=== PATIENT | male | born 1970 | race Caucasian/White ===

== ENCOUNTER 2019-03-04 01:07 | Emergency (ER) | payer OTHER ==
[~2019-03-04] VITALS: Ht 172.7 cm; Wt 120.0 kg
[2019-03-04 01:08] VITALS: Ht 172.7 cm; Wt 120.0 kg
--- NOTE | 2019-03-04 01:52 | ERD ---
ER Documentation Chief Complaint Chief Complaint HPI This is a 48-year-old male who presents for evaluation chest pain. Patient was brought in by ambulance, episode happened prior to arrival, however on arrival he became much more somnolent. His son was at the bedside who stated the patient had no history of drug use, no major medical problems. Patient has a history of sleep apnea, and he recently went through a sleep study. He states that his chest pain has been exertional, and is intermittent. ROS All systems reviewed and are negative except as per history of present illness. Allergies Allergies: Coded Allergies: No Known Allergy (Unverified , 03/04/19) Physical Exam Vitals Vital Signs Date Temp Pulse Resp B/P (MAP) Pulse Ox O2 O2 Flow FiO2 Time Delivery Rate 03/04/19 4 01:27 03/04/19 98.0 98 18 128/76 100 01:08 (93) Physical Exam Const: Asleep, somnolent, protecting airway Head: Atraumatic Eyes: Normal Conjunctiva ENT: Normal External Ears, Nose and Mouth. Neck: Full range of motion. No meningismus. Resp: Clear to auscultation bilaterally Cardio: Regular rate and rhythm, no murmurs Abd: Soft, obese non tender, non distended. Normal bowel sounds Skin: No petechiae or rashes Back: No midline or flank tenderness Ext: No cyanosis, or edema Neur: Arousable to painful stimuli, Psych: Unable to assess Result Diagram: 03/04/1921603/04/19216 Results 24 hrs Laboratory Tests Test 03/04/19 01:52 03/04/19 02:17 03/04/19 02:22 Blood Gas Specimen Source Blood venous Arterial Blood Date Drawn 03/04/2019 2:00:38 AM Arterial Blood Gas VENOUS LINE Puncture Site Marques Test N/A Mixed Venous Blood pH 7.337 Mixed Venous Blood PCO2 52.5 mmHG Mixed Venous Blood PO2 57.7 mmHG Mixed Venous Blood HCO3 27.5 mmol/L Mixed Venous Blood Base 0.7 mmol/L Excess Mixed Venous Blood 87.4 mmHG O2 Saturation Mixed Venous Blood 15.2 g/dl Total Hemoglobin Mixed Venous 86.8 % Blood Oxyhemoglobin Mixed Venous 0.3 % Bld Carboxyhemoglobin Mixed Venous 0.4 % Blood Methemoglobin Blood Gas Temperature 37.0 C Blood Gas Actual 16 Respiration Rate Blood Gas Modality ROOM AIR FiO2 21.0 % Blood Gas Notified Whom Unique BERRY RCP Blood Gas Notified Time 03/04/2019 2:09:00 AM White Blood Count 10.0 10^3/ul Red Blood Count 4.86 10^6/ul Hemoglobin 14.0 g/dl Hematocrit 43.6 % Mean Corpuscular Volume 89.7 fl Mean Corpuscular Hemoglobin 28.8 pg Mean Corpuscular 32.1 g/dl Hemoglobin Concent Red Cell Distribution Width 13.5 % Platelet Count 278 10^3/UL Mean Platelet Volume 10.7 fl Immature Granulocytes % 0.500 % Neutrophils % 67.4 % Lymphocytes % 22.9 % Monocytes % 7.8 % Eosinophils % 0.9 % Basophils % 0.5 % Nucleated Red Blood Cells % 0.0 /100WBC Immature Granulocytes # 0.050 10^3/ul Neutrophils # 6.7 10^3/ul Lymphocytes # 2.3 10^3/ul Monocytes # 0.8 10^3/ul Eosinophils # 0.1 10^3/ul Basophils # 0.1 10^3/ul Nucleated Red Blood Cells # 0.0 10^3/ul Prothrombin Time 12.4 Sec Prothrombin Time Ratio 1.0 INR International 0.91 Normalized Ratio Urine Color YELLOW Urine Clarity SLIGHTLY CLOUDY Urine pH 5.0 Urine Specific [place] 1.024 Urine Ketones NEGATIVE mg/dL Urine Nitrite NEGATIVE mg/dL Urine Bilirubin NEGATIVE mg/dL Urine Urobilinogen 2+ mg/dL Urine Leukocyte Esterase NEGATIVE [place]/ul Urine Microscopic RBC 1 /HPF Urine Microscopic WBC 0 /HPF Urine Mucus FEW /HPF Urine Hemoglobin NEGATIVE mg/dL Urine Glucose NEGATIVE mg/dL Urine Total Protein NEGATIVE mg/dl Sodium Level 141 mmol/L Potassium Level 3.7 mmol/L Chloride Level 105 mmol/L Carbon Dioxide Level 28 mmol/L Anion Gap 8 Blood Urea Nitrogen 17 mg/dl Creatinine 0.91 mg/dl Est Glomerular Filtrat > 60 mL/min Rate mL/min Glucose Level 199 mg/dl Calcium Level 8.5 mg/dl Total Bilirubin 0.6 mg/dl Direct Bilirubin 0.00 mg/dl Indirect Bilirubin 0.6 mg/dl Aspartate Amino 27 IU/L Transf (AST/SGOT) Alanine 49 IU/L Aminotransferase (ALT/SGPT) Alkaline Phosphatase 57 IU/L Troponin I < 0.012 ng/ml Total Protein 6.6 g/dl Albumin 3.7 g/dl Globulin 2.90 g/dl Albumin/Globulin Ratio 1.27 Salicylates Level < 1.0 mg/dl Urine Opiates Screen Negative Acetaminophen Level < 10.0 ug/ml Urine Barbiturates Negative Urine Amphetamines Screen Negative Urine Benzodiazepines Screen Negative Urine Cocaine Screen Negative Urine Cannabinoids Positive Ethyl Alcohol Level < 10.0 mg/dl POC Venous Lactate 1.8 mmol/L Current Medications Medications Dose Sig/Antonio Start Time Status Last (Trade) Ordered Route PRN Stop Time Admin Dose Reason Admin Aspirin 324 mg ONCE ONCE 03/04/19 DC (Aspirin) PO 03:30 03/04/19 03:31 Ketorolac 30 mg ONCE ONCE 03/04/19 DC Tromethamine IV 03:39 03/04/19 (Toradol) 03:40 Procedures/MDM This is a 48-year-old male who presents for evaluation of chest pain. Initially patient was quite somnolent, however during observation, he became much more arousable, and stated that he is just very tired, as he has sleep apnea, and has been going through sleep study not getting much sleep. He did not endorse that he takes edible marijuana on occasional basis. His EKG showed no sign of acute ischemia, his first troponin was negative. He was given aspirin in the ED, he is a [place] patient, so we will plan to discuss with [place] [facility] for likely transfer. EKG: Rate/Rhythm: Normal Sinus Rhythm QRS, ST, T-waves: No changes consistent w/ acute ischemia Impression: No evidence of ischemia or arrhythmia Chest X-ray 1V Interpreted by me: Soft Tissue: No acute abnormalities Bones: No acute abnormalities Mediastinum/Cardiac Silhouette/Lungs: No acute abnormalities 3:41 AM: Pain improved, patient remained stable, at this point have a low suspicion for pulmonary embolism, given that he still having chest pain, will plan for transfer to [place]. I spoke with the [facility] and will plan for transfer, authorization #[id number]. Departure Diagnosis: Primary Impression: Chest pain Chest pain type: unspecified Qualified Codes: R07.9 - Chest pain, unspecified Additional Impression: Altered mental state Altered mental status type: unspecified Qualified Codes: R41.82 - Altered mental status, unspecified Condition: Stable Patient Instructions: Chest Pain, Uncertain Cause RUSLAN READ MD Mar 04, 2019 01:52
[2019-03-04] MEDS ORDERED: ASPIRIN 81 MG TAB PO ONE (03:30)
[2019-03-04] MEDS ORDERED: KETOROLAC 30 MG INJ IV ONE (03:39)
[2019-03-04 05:12] VITALS: BP 117/77; PULSE 95; RESP 19
== END 2019-03-04 05:26 | disposition short-term general hospital (02) ==
LOC: E/R 01:07
DX: R07.9 Chest pain, unspecified (principal); R41.82 Altered mental status, unspecified; R40.2132 Coma scale, eyes open, to sound, at arrival to emergency department; R40.2312 Coma scale, best motor response, none, at arrival to emergency department; R40.2212 Coma scale, best verbal response, none, at arrival to emergency department
CPT/HCPCS: 36415; 36592; 70450; 71045; 80053; 80307; 81001; 82803; 83605; 84145; 84484; 85025; 85610; 93005; 96374; 99285; J1885; 81003